=== PATIENT | male | born 1990 | race Caucasian/White ===

== ENCOUNTER 2024-11-18 16:46 | Emergency (ER) | payer OTHER, SELFPAY ==
[2024-11-18 16:56] VITALS: BP 138/89; PULSE 81; TEMP 36.8; O2SAT 98; BMI 31.2
--- NOTE | 2024-11-18 17:01 | XR_ITS ---
[facility] [id number] Patient Name: MUNA ALARCON MRN: [id number] date: 1990 Sex: M Assigned Patient Location: ER Current Patient Location: ED.MAIN Accession/Order Number: [id number] Exam Date: 11/18/2024 17:39 Report Date: 11/18/2024 17:43 At the request of: TANNA LUCIANO Procedure: XR ankle LT min 3V XR foot LT min 3V, XR ankle LT min 3V 11/18/2024 5:21 PM SIGNS AND SYMPTOMS: Fall, acute left ankle and foot pain with swelling and bruising PROTOCOL: Frontal, lateral, and oblique radiographs of the left foot and left ankle COMPARISON: None FINDINGS: Left ankle: The ankle mortise is preserved. There is no fracture or dislocation. There is nonspecific soft tissue swelling diffusely. Left foot: The bones are in anatomic alignment. There is no evidence of fracture or dislocation. The joint spaces are preserved. No significant soft tissue swelling. XR/XR ankle LT min 3V IMPRESSION: Left ankle: No fracture. Nonspecific diffuse soft tissue swelling is noted. Left foot: No fracture. Impression dictated by: Chemo Fabian M.D. 11/18/2024 5:43 PM Dictation Location: [place] [address] Electronically authenticated by: [id number] Y Date: 11/18/2024 17:43
--- NOTE | 2024-11-18 17:01 | XR_ITS ---
[facility] [id number] Patient Name: MUNA ALARCON MRN: [id number] date: 1990 Sex: M Assigned Patient Location: ER Current Patient Location: ED.MAIN Accession/Order Number: [id number] Exam Date: 11/18/2024 17:39 Report Date: 11/18/2024 17:43 At the request of: TANNA LUCIANO Procedure: XR ankle LT min 3V XR foot LT min 3V, XR ankle LT min 3V 11/18/2024 5:21 PM SIGNS AND SYMPTOMS: Fall, acute left ankle and foot pain with swelling and bruising PROTOCOL: Frontal, lateral, and oblique radiographs of the left foot and left ankle COMPARISON: None FINDINGS: Left ankle: The ankle mortise is preserved. There is no fracture or dislocation. There is nonspecific soft tissue swelling diffusely. Left foot: The bones are in anatomic alignment. There is no evidence of fracture or dislocation. The joint spaces are preserved. No significant soft tissue swelling. XR/XR foot LT min 3V IMPRESSION: Left ankle: No fracture. Nonspecific diffuse soft tissue swelling is noted. Left foot: No fracture. Impression dictated by: Chemo Fabian M.D. 11/18/2024 5:43 PM Dictation Location: [place] [address] Electronically authenticated by: [id number] Y Date: 11/18/2024 17:43
--- NOTE | 2024-11-18 17:02 | ED.GENADUL1 ---
HPI HPI - General Adult General Chief complaint: Extremity Injury, Lower Stated complaint: LEFT FOOT ROLLED IT FEW DAYS AGO Time Seen by Provider: 11/18/24 16:59 Source: patient Mode of arrival: walk-in History of Present Illness HPI narrative: 34-year-old male presents here with a chief complaint of left foot and ankle pain. He excellently rolled his ankle on Sunday 4 days ago and continues to have pain and soft tissue swelling. He states when he ambulates he does feel like it wants to give out . He states he rolled it again while walking earlier today. Ecchymosis is noted to the posterior aspect of the heel area. He is ambulating with a boot without difficulty. He states he took ibuprofen with relief. Denies previous fracture to this extremity. Related Data Allergies Allergy/AdvReac Type Severity Reaction Status Date / Time No Known Drug Allergies Allergy Verified 11/18/24 16:59 Review of Systems ROS Status of ROS 10 or more systems reviewed and unremarkable except as noted in history and below PFSH PFSH Social History Little interest or pleasure in doing things: not at all Feeling down, depressed, or hopeless: not at all Exam Narrative Exam Narrative: All Systems are negative except as noted/marked.All systems reviewed and otherwise negative Nurses note and vital signs reviewed and patient is not hypoxic. General: The patient appears well and in no apparent distress. Patient is resting comfortably on cart. Skin: Warm, dry, no pallor noted. There is no rash noted. Head: Normocephalic, atraumatic Eye: Normal conjunctiva, no drainage, EOMI. PERRL Ears, Nose, Mouth, and Throat: oral mucosa is moist. Nares patent. Mouth without vesicles. Ear canals patent. Tm's without Erythema Musculoskeletal: Left lateral malleoli are ankle swollen tender soft tissue ecchymosis is noted, no Achilles pain or tenderness full range of motion but pain with ambulation, no obvious dislocation, neurovascularly intact, Neurological: A&O x4, normal speech Psychiatric: Cooperative Constitutional Vital Signs, click to edit/add: Last Vital Signs Temp 98.2 F 11/18/24 16:56 Pulse 81 11/18/24 16:56 Resp 16 11/18/24 16:56 BP 138/89 11/18/24 16:56 Pulse Ox 98 11/18/24 16:56 O2 Del Method Room Air 11/18/24 16:56 Course Vital Signs Vital signs: Vital Signs Temperature 98.2 F 11/18/24 16:56 Pulse Rate 81 11/18/24 16:56 Respiratory Rate 16 11/18/24 16:56 Blood Pressure 138/89 11/18/24 16:56 Pulse Oximetry 98 11/18/24 16:56 Oxygen Delivery Method Room Air 11/18/24 16:56 Temperature 98.2 F 11/18/24 16:56 Pulse Rate 81 11/18/24 16:56 Respiratory Rate 16 11/18/24 16:56 Blood Pressure 138/89 11/18/24 16:56 Pulse Oximetry 98 11/18/24 16:56 Oxygen Delivery Method Room Air 11/18/24 16:56 Medical Decision Making MDM Narrative Medical decision making narrative: 34-year-old male presents here with a chief complaint of left foot and ankle pain. He excellently rolled his ankle on Sunday 4 days ago and continues to have pain and soft tissue swelling. He states when he ambulates he does feel like it wants to give out . He states he rolled it again while walking earlier today. Ecchymosis is noted to the posterior aspect of the heel area. He is ambulating with a boot without difficulty. He states he took ibuprofen with relief. Denies previous fracture to this extremity. Foot and ankle x-ray showed no acute deformity or fractures. Patient will be given Seven wrap air splint applied by nursing staff. Patient will follow-up with Dr. Ca. Patient told to continue with rest ice elevation. Follow-up as indicated. Patient agrees with plan of care. Continue with Tylenol Motrin for pain. Differential Diagnosis Differential Diagnosis: ankle pain, fracture, foot pain, sprain Lab Data Lab results reviewed: Yes I reviewed the patient's lab results Imaging Data foot: My impression: no fracture Radiologist's impression: ITS Impressions Ankle X-Ray 11/18/24 17:01 IMPRESSION: Left ankle: No fracture. Nonspecific diffuse soft tissue swelling is noted. Left foot: No fracture. Impression dictated by: Chemo Fabian M.D. 11/18/2024 5:43 PM Dictation Location: [place] [address] Electronically authenticated by: [id number] Y Date: 11/18/2024 17:43 Foot X-Ray 11/18/24 17:01 IMPRESSION: Left ankle: No fracture. Nonspecific diffuse soft tissue swelling is noted. Left foot: No fracture. Impression dictated by: Chemo Fabian M.D. 11/18/2024 5:43 PM Dictation Location: [email or web address] CENTERResource Data Electronically authenticated by: [id number] Y Date: 11/18/2024 17:43 Discharge Plan Discharge Chief Complaint: Extremity Injury, Lower Clinical Impression: Ankle sprain and strain Patient Disposition: Home, Self-Care Time of Disposition Decision: 17:32 Condition: Good Print Language: Slovak Instructions: Ankle Sprain (ED) Referrals: Marcus Ca DPM [Physician, Podiatry] - 1 week ORLY LEVI [Primary Care Provider, Family Practice] - 1 week
[2024-11-18 17:50] VITALS: PULSE 87; O2SAT 99
== END 2024-11-18 17:50 | disposition home or self-care (01) ==
PROVIDERS: Emergency Provider Emergency Medicine; PCP Family Medicine
DX: S93.402A Sprain of unspecified ligament of left ankle, initial encounter (principal); S96.912A Strain of unspecified muscle and tendon at ankle and foot level, left foot, initial encounter; X50.1XXA Overexertion from prolonged static or awkward postures, initial encounter
CPT/HCPCS: 73610; 73630; 99283